=== PATIENT | female | born 1955 | race Caucasian/White ===

== ENCOUNTER 2018-09-24 20:31 | Emergency (ER) | payer MEDICAID ==
[~2018-09-24] VITALS: Ht 165.1 cm; Wt 75.7 kg
[2018-09-24 20:52] VITALS: BP 165/82
--- NOTE | 2018-09-24 20:52 | NUR ---
ED Nurse Note: Patient came in with complaints of left shoulder pain.
[2018-09-24] MEDS ORDERED: NKM (20:59)
[2018-09-24] MEDS ORDERED: Morphine Sulfate 2mg/ml Inj(IV/IM USE ONLY) IM ONE (21:15)
[2018-09-24] MEDS ORDERED: HYDROCODON-ACE1 EA15 ORAL (21:37)
[2018-09-24] MEDS ORDERED: IBUPROFEN600 MG ORAL (21:37)
--- NOTE | 2018-09-24 21:38 | Emergency Room Report ---
History of Present Illness General Chief Complaint: Upper Extremity Injury Source: Patient, Family Member Present Illness HPI This is a 63-year-old female who is right-handed. She presents with right arm pain. Onset today. She had history of right arm pain and had MRI done several months ago. It showed 1 tendon/ligament was rupture and the other was partially tear. She points to the mid upper arm. This is either her triceps tendon or her bicep tendon. She was holding her back today and his slipped and she try not catch it. Afterward she felt sharp onset of pain. Pain is a colitis to the mid arm. No other trauma. No swelling to no fever chills but no nausea no vomiting. Pain is 9 out of 10. Worse with movement. Her friend gave her some Lidoderm patches and is not helping. Denies any other complaint. Allergies: Coded Allergies: No Known Allergies (Verified Allergy, Unknown, 04/08/11) Patient History Past Medical History: see triage record, old chart reviewed Past Surgical History: other Pertinent Family History: none Social History: Denies: smoking Last Menstrual Period: 2 decades ago Now: No Immunizations: other Reviewed Nursing Documentation: PMH: Agreed; PSxH: Agreed Nursing Documentation-PMH Hx Hypertension: Yes Review of Systems Eye: Denies: eye pain, blurred vision ENT: Denies: ear pain, nose congestion, throat swelling Respiratory: Denies: cough, shortness of breath Cardiovascular: Denies: chest pain, palpitations Gastrointestinal: Denies: abdominal pain, diarrhea, nausea, vomiting Musculoskeletal: Reports: muscle pain; Denies: back pain, joint pain Skin: Denies: rash Neurological: Denies: headache, numbness Endocrine: Denies: increased thirst, increased urine Hematologic/Lymphatic: Denies: easy bruising All Other Systems: negative except mentioned in HPI Physical Exam Vital Signs Date Time Temp Pulse Resp B/P (MAP) Pulse Ox O2 Delivery O2 Flow Rate FiO2 09/24/18 20:52 98.2 72 16 165/82 96 Room Air vitals with high blood pressure Sp02 EP Interpretation: reviewed, normal General Appearance: well appearing, no apparent distress, alert Head: normocephalic, atraumatic Eyes: bilateral eye PERRL, bilateral eye EOMI ENT: hearing grossly normal, normal pharynx Neck: full range of motion, supple, no meningismus Respiratory: chest non-tender, lungs clear, normal breath sounds Cardiovascular #1: regular rate, rhythm, no murmur Gastrointestinal: normal bowel sounds, non tender, no mass, no organomegaly, no bruit, non-distended Musculoskeletal: back normal, gait/station normal, other - Left upper arm: She has tenderness to the mid tricep area. No obvious deformity. Worse with movement of the elbow. No elbow tenderness however. Shoulder nontender. Neurologic: alert, oriented x3 Psychiatric: mood/affect normal Skin: warm/dry Procedures Splinting Splinting : Consent: Verbal Location: Right arm Pre-Made Type: Sling Pre-Proc Neuro Vasc Exam: normal Post-Proc Neuro Vasc Exam: normal Patient Tolerated: Well Complications: None Medical Decision Making Diagnostic Impression: Primary Impression: Injury of left upper extremity Qualified Codes: S49.92XA - Unspecified injury of left shoulder and upper arm , initial encounter ER Course Patient with soft tissue injury to the left upper arm. His most likely has small tear in the muscle or tendon. No evidence of fracture or dislocation. We 'll discharge home. If not better, may need an MRI. Last Vital Signs Date Time Temp Pulse Resp B/P (MAP) Pulse Ox O2 Delivery O2 Flow Rate FiO2 09/24/18 20:52 98.2 72 16 165/82 96 Room Air Status: improved Disposition: HOME, SELF-CARE Condition: Stable Scripts Ibuprofen* (MOTRIN*) 600 Mg Tablet 600 MG ORAL THREE TIMES A DAY, #30 TAB 0 Refills Prov: Andrea Regalado MD 09/24/18 Hydrocodone/Acetaminophen 5-325* (HYDROCODONE/ACETAMINOPHEN 5-325*) 1 Each Tablet 1 TAB ORAL Q6H PRN for For Pain, #15 TAB 0 Refills Prov: Andrea Regalado MD 09/24/18 Additional Instructions: Wear sling. Ice pack to the area. Follow-up your doctor in 7 days. If not better, may need another MRI. Andrea Regalado MD Sep 24, 2018 21:38
[2018-09-24 21:43] VITALS: BP 165/82
--- NOTE | 2018-09-24 21:45 | NUR ---
ED Nurse Note: Patient cleared for discharge. Patient tolerated medication administration well, patient verbalized understanding of discharge instructions. Patient accompanied by friend upon discharge.
== END 2018-09-24 21:43 | disposition home or self-care (01) ==
LOC: EMR 21:19
DX: S49.92XA Unspecified injury of left shoulder and upper arm, initial encounter (principal); X58.XXXA Exposure to other specified factors, initial encounter; Y92.9 Unspecified place or not applicable; I10 Essential (primary) hypertension
CPT/HCPCS: 29105; 96372; 99283; J2270